=== PATIENT | male | born 1980 | race Two or more races ===

== ENCOUNTER 2018-09-07 11:30 | Day surgery (SDC) | payer MEDICAID ==
[~2018-09-07] VITALS: Ht 170.2 cm; Wt 115.0 kg
[2018-09-07 12:10] VITALS: BP 148/91
[2018-09-07] MEDS ORDERED: SODIUM CHLORIDE 0.9% 500 ML IV SCH (12:30)
[2018-09-07] MEDS ORDERED: LIDOCAINE-MPF 1%, 5ML ONE (14:24)
[2018-09-07 16:22] LABS: GLUCOSE, CSF 66 mg/dL (40-80); TOTAL PROTEIN,CSF 57 mg/dL (15-45)
[2018-09-07] MEDS ORDERED: HYDROcodone/APAP 5/325 TABLET PO ONE (17:00)
[2018-09-07] MEDS ORDERED: IBUPROFEN 600 MG TABLET PO ONE (17:00)
== END 2018-09-07 18:50 | disposition home or self-care (01) ==
LOC: OUT 11:30
PROVIDERS: ATTEND Psychiatry & Neurology Neurology
DX: M25.78 Osteophyte, vertebrae (principal); H53.8 Other visual disturbances; Z88.0 Allergy status to penicillin; Z88.8 Allergy status to other drugs, medicaments and biological substances; Z91.010 Allergy to peanuts
CPT/HCPCS: 36415; 62270; 82040; 82042; 82784; 82945; 83873; 84157; 86645; 86695; 86696; 86762; 86777; 86778; 89051

== ENCOUNTER 2018-09-14 11:31 | Emergency (ER) | payer MEDICAID ==
[~2018-09-14] VITALS: Ht 170.2 cm; Wt 114.9 kg
[2018-09-14 11:38] VITALS: BP 150/102
[2018-09-14 12:15] LABS: BASOPHILS # (AUTO) 0.04 x10^3/uL (0-0.1); BASOPHILS % (AUTO) 1 % (0-1); EOSINOPHILS # (AUTO) 0.15 x10^3/uL (0-0.4); EOSINOPHILS % (AUTO) 2 % (1-7); LYMPHOCYTES # (AUTO) 3.17 x10^3/uL (1-3.4); LYMPHOCYTES % (AUTO) 40 % (22-44); MD NO; MEAN CORPUSCULAR HEMOGLOBIN 28.6 pg (27.5-34.5); MEAN CORPUSCULAR HGB CONC 33.5 g/dL (33.2-36.2); MEAN CORPUSCULAR VOLUME 85.3 fL (81-97); MEAN PLATELET VOLUME 7.3 fL (7.4-10.4); MONOCYTES # (AUTO) 0.66 x10^3/uL (0.2-0.8); MONOCYTES % (AUTO) 8 % (2-9); NEUTROPHILS # (AUTO) 3.96 x10^3/uL (1.8-6.8); NEUTROPHILS % (AUTO) 50 % (42-75); PLATELET COUNT 359 x10^3/uL (130-400); RED CELL DISTRIBUTION WIDTH 12.4 % (9.4-14.8)
[2018-09-14] MEDS ORDERED: ACETAMINOPHEN 500 MG TABLET PO ONE (13:00)
[2018-09-14] MEDS ORDERED: ACETAMINOPHEN 500 MG TABLET ONE (13:24)
== END 2018-09-14 13:47 | disposition home or self-care (01) ==
LOC: ED 13:41
DX: L03.811 Cellulitis of head [any part, except face] (principal); L01.01 Non-bullous impetigo; I10 Essential (primary) hypertension; E11.9 Type 2 diabetes mellitus without complications
CPT/HCPCS: 36415; 85025; 99283

== ENCOUNTER 2020-01-11 23:39 | Inpatient (IN) | payer MEDICAID ==
[~2020-01-11] VITALS: Ht 170.2 cm; Wt 102.6 kg
--- NOTE | 2020-01-12 01:30 | NUR ---
AMBULATE TO ROOM WITH STEADY GAIT AND CANE.
[2020-01-12] MEDS ORDERED: SODIUM CHLORIDE FLUSH 10ML SYR IVF ONE (02:00)
--- NOTE | 2020-01-12 02:23 | NUR ---
iv site started, labs drawn. provided pt with urine cup, pt stated "i don't need to go now". call light within reach. awaiting lab and xray results
[2020-01-12 02:32] LABS: BASOPHILS # (AUTO) 0.03 x10^3/uL (0-0.1); BASOPHILS % (AUTO) 1 % (0-1); EOSINOPHILS # (AUTO) 0.17 x10^3/uL (0-0.4); EOSINOPHILS % (AUTO) 3 % (1-7); LYMPHOCYTES # (AUTO) 2.52 x10^3/uL (1-3.4); LYMPHOCYTES % (AUTO) 48 % (22-44); MD NO; MEAN CORPUSCULAR HEMOGLOBIN 29.3 pg (27.5-34.5); MEAN CORPUSCULAR VOLUME 86.3 fL (81-97); MEAN PLATELET VOLUME 7.3 fL (7.4-10.4); MONOCYTES % (AUTO) 11 % (2-9); NEUTROPHILS # (AUTO) 1.99 x10^3/uL (1.8-6.8); NEUTROPHILS % (AUTO) 38 % (42-75); PLATELET COUNT 384 x10^3/uL (130-400); RED BLOOD COUNT 4.89 x10^6/uL (4.38-5.82); RED CELL DISTRIBUTION WIDTH 12.5 % (9.4-14.8)
[2020-01-12 02:40] LABS: ALBUMIN 4.4 g/dL (3.4-5.0); ANION GAP 8 mmol/L (5-15); CALCIUM 9.2 mg/dL (8.5-10.1); CHLORIDE 104 mmol/L (98-107)
[2020-01-12 02:42] LABS: SALICYLATE LEVEL < 1.7 mg/dL (2.8-20.0)
[2020-01-12 02:45] LABS: ALANINE AMINOTRANSFERASE 42 U/L (12-78); ALKALINE PHOSPHATASE 61 U/L (45-117); BILIRUBIN,TOTAL 0.2 mg/dL (0.2-1.0); CREATININE 0.85 mg/dL (0.7-1.3); TOTAL PROTEIN 8.1 g/dL (6.4-8.2); TROPONIN I < 0.015 ng/mL (0.000-0.045)
--- NOTE | 2020-01-12 03:03 | NUR ---
pt sitting up on gurney, friends at his bedside, monitors in place, calllight within reach. awaiting room for admit
[2020-01-12] MEDS ORDERED: DIME240C PO (03:09)
[2020-01-12] MEDS ORDERED: AMPH20TA2 PO (03:09)
[2020-01-12] MEDS ORDERED: GLIP5TAB10 PO (03:18)
[2020-01-12] MEDS ORDERED: BUPR-86 PO (03:18)
[2020-01-12] MEDS ORDERED: BUPR300T49 PO (03:18)
[2020-01-12] MEDS ORDERED: LISI1TAB19 PO (03:18)
[2020-01-12] MEDS ORDERED: METF500T17 PO (03:18)
[2020-01-12] MEDS ORDERED: GEMF600T8 PO (03:18)
[2020-01-12 03:57] VITALS: BP 124/75
[2020-01-12 06:05] LABS: MICROSCOPIC NOT IND
[2020-01-12 06:10] LABS: CULTURE INDICATED? NO
[2020-01-12 06:17] LABS: AMPHETAMINE SCREEN, URINE Positive (Negative); BARBITURATE SCREEN, URINE Negative (Negative); BENZODIAZEPINE SCREEN, URINE Negative (Negative); CANNABINOID SCREEN, URINE Negative (Negative); COCAINE SCREEN, URINE Negative (Negative); METHADONE SCREEN, URINE Negative (Negative); OPIATE SCREEN, URINE Negative (Negative)
[2020-01-12 08:28] VITALS: BP 117/73
[2020-01-12] MEDS ORDERED: ONDANSETRON 2MG/ML, 2ML IVPush PRN (09:00)
[2020-01-12] MEDS ORDERED: ACETAMINOPHEN 325 MG TABLET PO PRN (09:00)
[2020-01-12] MEDS ORDERED: POLYETHYLENE GLYCOL 17 GM PACKET PO PRN (09:00)
[2020-01-12] MEDS ORDERED: OXYcodone IR 5MG TABLET PO PRN (09:00)
[2020-01-12] MEDS ORDERED: PROMETHAZINE 25 MG/ML, 1ML IM PRN (09:00)
[2020-01-12] MEDS ORDERED: DOCUSATE 100 MG CAPSULE PO PRN (09:00)
[2020-01-12] MEDS ORDERED: BISACODYL 10 MG SUPP PR PRN (09:00)
[2020-01-12] MEDS ORDERED: hydrALAzine 20 MG/ML, 1ML IVPush PRN (09:00)
[2020-01-12] MEDS ORDERED: morphine SULFATE 10 MG/ML, 1ML IVPush PRN (09:00)
[2020-01-12] MEDS ORDERED: ONDANSETRON ODT 4 MG PO PRN (09:00)
[2020-01-12] MEDS: SODIUM CHLORIDE 0.9% 1,000 ML IV SCH ×2 (09:25→17:28)
[2020-01-12] MEDS: ENOXAPARIN 40 MG/0.4 ML SQ SCH (09:47)
[2020-01-12 09:52] LABS: FREE T4 (FREE THYROXINE) 1.21 ng/dL (0.76-1.46)
[2020-01-12 10:11] LABS: MICROSCOPIC AUTO
[2020-01-12 10:17] LABS: CULTURE INDICATED? YES
[2020-01-12] MEDS ORDERED: TEMPLATE NON-FORMULARY MED. (Bupropion Hcl** (Wellbutrin Xl**) 300 MG) PO SCH (10:30)
[2020-01-12] MEDS: DIMETHYL FUMARATE 240 MG HOMEMEDPO SCH ×3 (10:30→21:22)
[2020-01-12] MEDS ORDERED: TEMPLATE NON-FORMULARY MED. (Bupropion Hcl** (Wellbutrin Xl**) 150 MG) HOMEMEDPO SCH (10:30)
[2020-01-12] MEDS: metFORMIN 500 MG TABLET PO SCH ×2 (10:57→21:22)
[2020-01-12] MEDS: GEMFIBROZIL 600 MG TABLET PO SCH ×2 (10:57→21:22)
[2020-01-12 13:53] VITALS: BP 130/70
[2020-01-12] MEDS ORDERED: CHOLECALCIFEROL 1,000 UNIT TABLET PO ONE (20:00)
[2020-01-12 20:12] VITALS: BP 104/59
[2020-01-12] MEDS ORDERED: BUPROPION SR 150 MG TABLET PO SCH (21:00)
[2020-01-12] MEDS: BUPROPION SR 100 MG TABLET PO SCH (21:22)
[2020-01-13 02:00] VITALS: BP 120/62
[2020-01-13] MEDS: SODIUM CHLORIDE 0.9% 1,000 ML IV SCH (04:50)
[2020-01-13 06:29] LABS: BASOPHILS % (AUTO) 0 % (0-1); EOSINOPHILS # (AUTO) 0.02 x10^3/uL (0-0.4); EOSINOPHILS % (AUTO) 0 % (1-7); LYMPHOCYTES # (AUTO) 0.93 x10^3/uL (1-3.4); LYMPHOCYTES % (AUTO) 9 % (22-44); MD NO; MEAN CORPUSCULAR HEMOGLOBIN 29.2 pg (27.5-34.5); MEAN CORPUSCULAR HGB CONC 33.7 g/dL (33.2-36.2); MEAN CORPUSCULAR VOLUME 86.7 fL (81-97); MEAN PLATELET VOLUME 7.6 fL (7.4-10.4); MONOCYTES # (AUTO) 0.24 x10^3/uL (0.2-0.8); MONOCYTES % (AUTO) 2 % (2-9); NEUTROPHILS % (AUTO) 88 % (42-75); PLATELET COUNT 378 x10^3/uL (130-400); RED BLOOD COUNT 4.67 x10^6/uL (4.38-5.82); RED CELL DISTRIBUTION WIDTH 12.4 % (9.4-14.8)
[2020-01-13 06:41] LABS: ALANINE AMINOTRANSFERASE 36 U/L (12-78); ALBUMIN 3.8 g/dL (3.4-5.0); ANION GAP 6 mmol/L (5-15); CHLORIDE 106 mmol/L (98-107); CHOLESTEROL, TOTAL 152 mg/dL (140-239); CREATININE 0.86 mg/dL (0.7-1.3)
[2020-01-13 06:43] LABS: ALKALINE PHOSPHATASE 53 U/L (45-117); BILIRUBIN,TOTAL 0.4 mg/dL (0.2-1.0); CHOL/HDL RATIO 2.3; HDL CHOL % 43 % (26-37); HDL CHOLESTEROL (DIRECT) 65 mg/dL (40-60); LDL CHOLESTEROL,CALCULATED 75 mg/dL (54-169); LDL/HDL RATIO 1.2 (0.5-3.0); TOTAL PROTEIN 7.4 g/dL (6.4-8.2); TRIGLYCERIDES 61 mg/dL (50-200); VLDL CHOLESTEROL 12 mg/dL (0-25)
[2020-01-13 08:24] VITALS: BP 121/66
[2020-01-13] MEDS: DIMETHYL FUMARATE 240 MG HOMEMEDPO SCH ×2 (08:57→20:39)
[2020-01-13] MEDS: metFORMIN 500 MG TABLET PO SCH ×2 (08:58→20:38)
[2020-01-13] MEDS: GEMFIBROZIL 600 MG TABLET PO SCH ×2 (08:59→20:38)
[2020-01-13] MEDS: BUPROPION SR 100 MG TABLET PO SCH ×2 (09:00→20:38)
[2020-01-13] MEDS: HYDROCHLOROTHIAZIDE 12.5 MG CAPSULE PO SCH (09:01)
[2020-01-13] MEDS: LISINOPRIL 20 MG TABLET PO SCH (09:01)
[2020-01-13] MEDS: ENOXAPARIN 40 MG/0.4 ML SQ SCH (09:02)
[2020-01-13 14:26] VITALS: BP 124/71
[2020-01-13 18:48] VITALS: BP 126/80
[2020-01-13] MEDS: GABAPENTIN 300 MG CAPSULE PO PRN (20:38)
[2020-01-14 00:04] VITALS: BP 112/67
[2020-01-14 07:03] VITALS: BP 108/62
[2020-01-14] MEDS: DIMETHYL FUMARATE 240 MG HOMEMEDPO SCH (09:53)
[2020-01-14] MEDS: GEMFIBROZIL 600 MG TABLET PO SCH (09:53)
[2020-01-14] MEDS: HYDROCHLOROTHIAZIDE 12.5 MG CAPSULE PO SCH (09:54)
[2020-01-14] MEDS: LISINOPRIL 20 MG TABLET PO SCH (09:54)
[2020-01-14] MEDS: metFORMIN 500 MG TABLET PO SCH (09:54)
[2020-01-14] MEDS: BUPROPION SR 100 MG TABLET PO SCH (09:55)
[2020-01-14] MEDS: ENOXAPARIN 40 MG/0.4 ML SQ SCH (09:55)
[2020-01-14] MEDS: GABAPENTIN 300 MG CAPSULE PO PRN (09:57)
[2020-01-14] MEDS ORDERED: GABA300C10 PO (12:37)
[2020-01-14] MEDS ORDERED: PRED20TA PO ×3 (12:56→15:56)
[2020-01-14 13:29] VITALS: BP 134/72
== END 2020-01-14 16:46 | disposition home or self-care (01) | DRG 60 ==
LOC: ED 01-12 01:50 → EDIP 01-12 02:38 → 3N 01-12 03:52 → DCLOUNGE 01-14 16:18
PROVIDERS: ADMIT Family Medicine; ATTEND Family Medicine
DX: G35 Multiple sclerosis (principal); E11.9 Type 2 diabetes mellitus without complications; E78.1 Pure hyperglyceridemia; F32.9 Major depressive disorder, single episode, unspecified; I10 Essential (primary) hypertension; Z83.3 Family history of diabetes mellitus; Z88.0 Allergy status to penicillin; Z91.010 Allergy to peanuts; Z79.899 Other long term (current) drug therapy
CPT/HCPCS: 36415; 70450; 71045; 80053; 80061; 80307; 81001; 81003; 82140; 83036; 83735; 84100; 84439; 84443; 84484; 85025; 87086; 93005; G0378; J1650; J2930; J7030